=== PATIENT | female | born 1990 | race Hispanic/Latino ===

== ENCOUNTER 2021-12-10 10:45 | Inpatient (IN) | payer BC ==
[~2021-12-10] VITALS: Ht 165.1 cm; Wt 81.6 kg
[2021-12-10] MEDS: LACTATED RINGERS 1000ML 1,000 ML IV PRN ×3 (11:40→13:25)
[2021-12-10] MEDS ORDERED: LACTATED RINGERS 500 ML 500 ML IV PRN (12:00)
[2021-12-10] MEDS ORDERED: ROPIVACAINE 0.2% 100ML VIAL 100 ML EP SCH (12:00)
[2021-12-10] MEDS ORDERED: OXYTOCIN-LR 20 UNITS/1000 ML 1,000 ML IV SCH ×3 (12:00→18:30)
[2021-12-10] MEDS ORDERED: NALOXONE HCL 0.4 MG/1 ML ML IV PRN (12:00)
[2021-12-10] MEDS ORDERED: EPHEDRINE SULFATE 50 MG/ML AMPULE IVP PRN (12:00)
[2021-12-10 12:06] LABS: HEMATOCRIT 30.1 % (36-48); MEAN CORPUSCULAR HGB CONC 32.2 g/dL (32.0-36.0); MEAN CORPUSCULAR VOLUME 83.8 fL (79-99); RED BLOOD CELL COUNT(AUTO) 3.59 MIL/uL (4.00-5.50); RED CELL DISTRIBUTION WIDTH 12.9 % (11.0-15.5); WHITE BLOOD COUNT (AUTO) 11.4 K/uL (4.8-10.8)
[2021-12-10 12:46] LABS: APPEARANCE,URINE Clear (CLEAR); BILIRUBIN,URINE Negative (NEGATIVE); COLOR,URINE Yellow (YELLOW); GLUCOSE, URINE (UA) Negative (NEGATIVE); KETONES,URINE 15 mg/dL (NEGATIVE); LEUKOCYTE ESTERASE ,URINE Trace (NEGATIVE); NITRATE,URINE Negative (NEGATIVE); OCCULT BLOOD,URINE Negative (NEGATIVE); PROTEIN,URINE Negative (NEGATIVE)
[2021-12-10 13:12] LABS: BACTERIA,URINE Few /HPF (None Seen); RBC,URINE 0-1 /HPF (0-1)
[2021-12-10] MEDS ORDERED: LIDOCAINE HCL 1% 20 ML VIAL ONE (16:53)
[2021-12-10] MEDS ORDERED: ACETAMINOPHEN 325 MG TAB PO PRN (18:30)
[2021-12-10] MEDS ORDERED: DIPH,PERTUSS(ACELL),TET VAC/PF 0.5 ML VIAL IM PRN (18:30)
[2021-12-10] MEDS ORDERED: MEASLES/MUMPS/RUBELLA VACCINE, LIVE 0.5 ML/VIAL SQ PRN (18:30)
[2021-12-10] MEDS ORDERED: ACETAMINOPHEN WITH CODEINE 1 TAB TAB PO PRN (18:30)
[2021-12-10] MEDS ORDERED: LANOLIN 30GM OINTMENT TP PRN (18:30)
[2021-12-10] MEDS ORDERED: BENZOCAINE/LANOLIN/ALOE VERA 60 ML AEROSOL TP PRN (18:30)
[2021-12-10] MEDS ORDERED: WITCH HAZEL 1 PAD TP PRN (18:30)
[2021-12-10] MEDS: IBUPROFEN 600 MG TABLET PO PRN (19:23)
[2021-12-10 19:37] VITALS: BP 133/71
[2021-12-10 19:52] VITALS: BP 124/60
[2021-12-10 20:10] VITALS: BP 134/75
[2021-12-10] MEDS ORDERED: FLU VACC QS2021-22(6MOS UP)/PF 60 MCG/0.5 ML ML IM ONE (21:00)
[2021-12-10] MEDS: DOCUSATE SODIUM 100 MG CAP PO SCH (21:13)
[2021-12-10 23:09] VITALS: BP 109/59
[2021-12-11 03:54] VITALS: BP 113/59
[2021-12-11 06:26] LABS: MEAN CORPUSCULAR HEMOGLOBIN 28.3 pg (27.0-33.0); MEAN CORPUSCULAR HGB CONC 32.4 g/dL (32.0-36.0); MEAN CORPUSCULAR VOLUME 87.3 fL (79-99); RED BLOOD CELL COUNT(AUTO) 3.32 MIL/uL (4.00-5.50); RED CELL DISTRIBUTION WIDTH 13.2 % (11.0-15.5); WHITE BLOOD COUNT (AUTO) 15.9 K/uL (4.8-10.8)
[2021-12-11] MEDS: IBUPROFEN 600 MG TABLET PO PRN (06:39)
[2021-12-11 07:30] VITALS: BP 112/76
[2021-12-11] MEDS: DOCUSATE SODIUM 100 MG CAP PO SCH ×2 (08:48→20:15)
[2021-12-11 09:10] LABS: HEPATITIS Bs ANTIGEN SCREEN P Negative (Negative)
[2021-12-11 11:30] VITALS: BP 123/78
[2021-12-11 16:00] VITALS: BP 121/75
[2021-12-11 19:22] VITALS: BP 130/86
[2021-12-11 23:08] VITALS: BP 116/73
[2021-12-12 03:28] VITALS: BP 114/55
[2021-12-12 07:16] VITALS: BP 124/71
[2021-12-12] MEDS: IBUPROFEN 600 MG TABLET PO PRN (07:36)
[2021-12-12] MEDS: DOCUSATE SODIUM 100 MG CAP PO SCH (07:36)
[2021-12-12] MEDS ORDERED: PREN-154 PO (09:15)
[2021-12-12 12:03] VITALS: BP 120/77
== END 2021-12-12 12:20 | disposition home or self-care (01) | DRG 807 ==
LOC: EDSTATUS 11:25 → LDH 11:32 → OBSVTOIN 11:32 → INTOOBSV 11:32 → UNDOADMOB 11:32 → WSH 20:00 → LDH 20:00
PROVIDERS: ADMIT Obstetrics & Gynecology; ATTEND Obstetrics & Gynecology
PROC: 10D07Z6 Extraction of Products of Conception, Vacuum, Via Natural or Artificial Opening (ICD-10-PCS; principal; 2021-12-10)
PROC: 0UQMXZZ Repair Vulva, External Approach (ICD-10-PCS; 2021-12-10)
PROC: 10907ZC Drainage of Amniotic Fluid, Therapeutic from Products of Conception, Via Natural or Artificial Opening (ICD-10-PCS; 2021-12-10)
PROC: 3E0R3BZ Introduction of Anesthetic Agent into Spinal Canal, Percutaneous Approach (ICD-10-PCS; 2021-12-10)
PROC: 00HU33Z Insertion of Infusion Device into Spinal Canal, Percutaneous Approach (ICD-10-PCS; 2021-12-10)
PROC: 3E0234Z Introduction of Serum, Toxoid and Vaccine into Muscle, Percutaneous Approach (ICD-10-PCS; 2021-12-10)
PROC: 3E02340 Introduction of Influenza Vaccine into Muscle, Percutaneous Approach (ICD-10-PCS; 2021-12-10)
DX: O76 Abnormality in fetal heart rate and rhythm complicating labor and delivery (principal); Z37.0 Single live birth; Z3A.37 37 weeks gestation of pregnancy; O70.0 First degree perineal laceration during delivery; O71.82 Other specified trauma to perineum and vulva; Z23 Encounter for immunization
CPT/HCPCS: 36415; 81001; 85027; 86592; 86850; 86900; 86901; 87340; 90715; A4314; G0008; G0378; J2590; J2795; J7120; Q2035